=== PATIENT | male | born 1980 | race African-American/Black ===

== ENCOUNTER 2019-06-06 16:49 | Emergency (ER) | payer OTHER ==
--- NOTE | 2019-06-06 16:57 | PDOC ---
Rapid Medical Evaluation Medical Evaluation: Allergies Allergy/AdvReac Type Severity Reaction Status Date / Time No Known Allergies Allergy Verified 10/07/12 17:24 I have performed a brief in-person evaluation of this patient. The patient presents with a chief complaint of: ?bug bites from 4 days ago on R hand and R thigh; denies recent travel, hiking/gardening Pertinent physical exam findings: blisters along medial aspect of R middle finger; unable to examine R thigh in triage I have ordered the following: Nothing The patient will proceed to the ED for further evaluation. 06/06/19 16:54
[2019-06-06 17:04] VITALS: BP 122/86; PULSE 90; TEMP 98.5; BMI 25.7
--- NOTE | 2019-06-06 17:22 | PDOC ---
History of Present Illness - General Chief Complaint: Bite Stated Complaint: BITE/EVALUATION Time Seen by Provider: 06/06/19 16:54 - History of Present Illness Initial Comments: 06/06/19 17:22 38 y/o M w/o CM presents for evaluation lesions on the R hand and R thigh x5 days without systemic symptoms, he states he took the mattress cover off his mattress recently Past History - Past Medical History Allergies/Adverse Reactions: Allergies Allergy/AdvReac Type Severity Reaction Status Date / Time No Known Allergies Allergy Verified 06/06/19 16:57 Home Medications: Ambulatory Orders No Home Medications 0 dose .ROUTE UTDICT 10/07/12 Permethrin 5% Topical Cream [Elimite -] 1 applic TP ONCE #1 tube 06/06/19 COPD: No - Suicide/Smoking/Psychosocial Hx Smoking Status: No Smoking History: Never smoked Number of Cigarettes Smoked Daily: 0 Information on smoking cessation initiated: No Hx Alcohol Use: No Drug/Substance Use Hx: No Review of Systems - Review of Systems Constitutional: No: Fever Integumentary: Yes: Lesions, Rash *Physical Exam - Vital Signs Last Vital Signs Temp Pulse Resp BP Pulse Ox 98.5 F 90 16 122/86 99 06/06/19 16:54 06/06/19 16:54 06/06/19 16:54 06/06/19 16:54 06/06/19 16:54 - Physical Exam Comments: 06/06/19 17:19 HEAD: NC/AT EYES: Conjuntiva clear MS: Full ROM in all joints without edema NEUROLOGIC: No gross sensory or motor deficits, NVID SKIN: Normal color and temperature there are a cluster of lesion on the inner aspect of the right thigh appearing to be raised without pustulates, no indication of secondary infection, a few; about 3-4 of the same lesions on the left inner thigh, one on the inner aspect of the L upper arm, and multiple of the same lesions with a linear subq kirit with interdigital involvement in the R hand. Medical Decision Making - Medical Decision Making 06/06/19 17:17 Strong suspicion for scabies will treat as such with derm follow up *DC/Admit/Observation/Transfer Diagnosis at time of Disposition: Scabies - Discharge Dispostion Disposition: HOME Condition at time of disposition: Stable Decision to Admit order: No - Prescriptions Prescriptions: Permethrin 5% Topical Cream [Elimite -] 1 applic TP ONCE #1 tube - Referrals Referrals: Dayanna Veras MD [Staff Physician] - - Patient Instructions Printed Discharge Instructions: Scabies, DI for Scabies Additional Instructions: Please use the medication as directed and repeat the process in 7 days. Without fail, please follow up with dermatology. Return to the Emergency Room should symptoms worsen. - Post Discharge Activity
== END 2019-06-06 17:25 | disposition home or self-care (01) ==
LOC: JERFT 16:49
DX: B86 Scabies (principal)
CPT/HCPCS: 99281-25

== ENCOUNTER 2019-06-12 23:06 | Emergency (ER) | payer OTHER | END 2019-06-13 00:17 | disposition home or self-care (01) | LOC: JER 23:06 | DX: B86 Scabies (principal) ==